=== PATIENT | female | born 1960 | race Caucasian/White ===

== ENCOUNTER 2018-01-17 16:02 | Inpatient (IN) ==
--- NOTE | 2018-01-17 16:36 | Emergency Department Note ---
Lower Extremity Injury HPI - General Chief Complaint: Extremity Injury, Lower Stated Complaint: Right Hip Pain. Time Seen by Provider: 01/17/18 16:08 Source: patient Mode of arrival: ambulatory Limitations: no limitations - History of Present Illness HPI Narrative: 57 YOF fell in her home in her kitchen 2 days ago at 1630 tripping over toys. Pt was transported by EMS to [facility] and received x-rays and evaluation. Pt was diagnosed at that time with right pinkie fracture and a cast was applied. Right hip was also x-rayed with no signs of fracture. Pt stated she has not been able to walk since the fall, she shuffles her feet to get to the bathroom and has the assistance of two persons to help her onto her bed. MD complaint: hip injury (right) Onset (ago): day(s) (two) Injury: Right: hip Type of Injury: blunt Place: home Severity: moderate Improves with: nothing Worsens with: movement Associated symptoms: Denies: ambulatory Other symptoms: none Treatments prior to arrival: NSAIDS, other - Related Data Home Medications Medication Instructions Recorded Confirmed Albuterol Sulfate [Proair Hfa] 8.5 gm IH Q4HP PRN 01/22/17 01/22/17 Atomoxetine HCl [Strattera] 100 mg PO DAILY 01/22/17 01/22/17 Buprenorphine [Butrans] 20 mcg TD QWEEK 01/22/17 01/22/17 Gabapentin [Neurontin] 300 mg PO BID 01/22/17 01/22/17 Hydrocodone/APAP 7.5/325Mg [[place] 1 tab PO BID 01/22/17 01/22/17 7.5/325Mg] Meloxicam [Mobic] 7.5 mg PO DAILY 01/22/17 01/22/17 Methocarbamol [Robaxin-750] 750 mg PO BID 01/22/17 01/22/17 Montelukast Sodium [Singulair] 10 mg PO HS 01/22/17 01/22/17 Ondansetron HCl [Zofran ODT] 4 mg SL DAILY 01/22/17 01/22/17 Pantoprazole Sodium [Protonix] 40 mg PO DAILY 01/22/17 01/22/17 Tolterodine Tartrate [Tolterodine 4 mg PO DAILY 01/22/17 01/22/17 Tartrate ER] Verapamil HCl [Verapamil ER] 120 mg PO HS 01/22/17 01/22/17 buPROPion HCL [Wellbutrin Xl] 300 mg PO DAILY 01/22/17 01/22/17 carBAMazepine [Tegretol Xr] 400 mg PO DAILY 01/22/17 01/22/17 clonazePAM [Clonazepam] 1 mg PO BID 01/22/17 01/22/17 Allergies Allergy/AdvReac Type Severity Reaction Status Date / Time Amoxicillin [From Augmentin] AdvReac Unknown Nausea Verified 01/22/17 13:09 clavulanic acid AdvReac Unknown Nausea Verified 01/22/17 13:09 [From Augmentin] levofloxacin [From Levaquin] AdvReac Unknown Swelling Verified 01/22/17 13:09 topiramate [From Topamax] AdvReac Unknown Rash Verified 01/22/17 13:09 Review of Systems Constitutional: Denies: fever, chills, weight change Cardiovascular: Denies: chest pain, palpitations, dyspnea on exertion, edema Respiratory: Denies: shortness of breath, wheezes Gastrointestinal: Denies: abdominal pain, nausea, vomiting, diarrhea Genitourinary: Denies: dysuria, urgency, frequency Musculoskeletal: Reports: joint pain. Denies: back pain, joint swelling, muscle cramps Integumentary: Denies: rash Neurological: Denies: headache, weakness Endocrine: Denies: fatigue Past Medical History - Past Medical History Medical history: Reports: other (reports "white matter disease" suggestion of microvascular dementia on previous imaging; hronic low back pain) Psychiatric history: Reports: bipolar Surgical history ED: Reports: other () - Social History smoking status: Current every day smoker Physical Exam Limitations: no limitations General appearance: alert, in no apparent distress Head: normocephalic, normal inspection Eye: Present: normal appearance, PERRL ENT: normal external ear exam Neck: Present: normal inspection Chest: Present: normal inspection, symmetric chest wall rise. Absent: tenderness Respiratory: Present: normal lung sounds bilaterally. Absent: wheezes Cardiovascular: Present: regular rate, normal rhythm. Absent: systolic murmur, diastolic murmur Abdominal: Present: soft, normal bowel sounds. Absent: distention, tenderness, guarding Hip/Pelvis: Present: tenderness, pelvis stable. Absent: swelling, ecchymosis, deformity, internal rotation, shortening Gait: other (pt shuffles when walks and had increased pain in pelvis/hip when moving right leg) Back: Present: normal inspection. Absent: tenderness Course Vital Signs Temperature 98.0 F 01/17/18 16:03 Pulse Rate 85 01/17/18 16:03 Respiratory Rate 18 01/17/18 16:03 Blood Pressure 155/90 01/17/18 16:03 Pulse Oximetry (%) 97 01/17/18 16:03 Temperature 98.0 F 01/17/18 16:03 Pulse Rate 79 01/17/18 18:01 Respiratory Rate 18 01/17/18 16:03 Blood Pressure 132/77 01/17/18 18:01 Pulse Oximetry (%) 99 01/17/18 18:01 Extremity Injury, Lower - MDM Narrative Medical decision making narrative: Pt CT showed Vertically oriented fracture of the right sacral wing and Fractures of the right pubic bone including the inferior pubic ramus and junction of the superior pubic bone and acetabulum. Pt lives at home alone with family members in and out but no one to assist her throughout much of the day. Pt also in need of pain control, due to extreme pain with movement. Talked with Hospitalist Nuno and pt will be placed into overnight observation. Disposition Pt seen by [facility]/PA only: No (chin) Clinical Impression: Fracture of hip Qualifiers: Encounter type: initial encounter Fracture type: closed Laterality: right Qualified Code(s): S72.001A - Fracture of unspecified part of neck of right femur, initial encounter for closed fracture Disposition: Xfer As Outpt/Obs ([facility]) Referrals: Adia Blake DO [Primary Care Provider] - Time of Disposition: 18:38
--- NOTE | 2018-01-17 17:02 | Cat Scan Report ---
CLINICAL INFORMATION: Fall. Pelvis and right hip pain. TECHNIQUE: Axial thin section images through the pelvis. Sagittal and coronally reformatted images. COMPARISON: None. FINDINGS: Vertically oriented fracture through the right sacral wing. No displacement. No evidence for pathologic fracture. Left sacral wing is normal. There is slight widening of the right sacroiliac joint. There is a nondisplaced fracture at the junction of the right acetabulum and superior pubic bone. This is extra-articular. There is a fracture of the right inferior pubic ramus. Hips are negative. Femoral heads and necks are normal. No evidence for avascular necrosis. No degenerative joint disease. There is right-sided soft tissue hemorrhage with hematoma involving the internal and external obturator muscles on the right. No free intraperitoneal fluid. IMPRESSION: 1. Vertically oriented fracture of the right sacral wing 2. Fractures of the right pubic bone including the inferior pubic ramus and junction of the superior pubic bone and acetabulum. Interpreted and Authenticated by: José Luis Alcaraz 01/17/18
--- NOTE | 2018-01-17 18:05 | Internal Med History&Physical ---
Medical - H&P: HPI Patient information: Note initiated : 01/17/18 at 6:01 pm Patient: Val Blue a 57 y/o F admitted for medical management of non- operative, stable pelvic fractures. Chief Complaint: [right hip pain, unable to bear weight.] History of present illness: Ms. Blue is a 57 year old F with underlying diagnoses including bipolar disorder, hypertension, spinal stenosis, and history of peptic ulcer disease without history of GI bleed who presents with right hip pain and inability to walk 48 hours after a fall. She notes she tripped on some dog toys on the kitchen floor, fell "straight backwards", coming to land mostly on her right posterior hip. She was unable to stand alone at that time, was able to get up with assistance from her daughter and son-in-law. She was evaluated at the ED at [facility], and noted to have a fracture in her 5th digit (??metacarpal) - and was placed in a forearm splint with 4th and 5th fingers in flexion. She states she was told she had no other fractures at that time. After 48 hours, discomfort has increased further and she is unable to bear weight or get around. The presence of the splint would make a walker somewhat challenging. In the ED here, CT of the pelvis showed no fractures requiring operative intervention, but did show multiple sacral and pelvis fractures that are stable and require medical management. ED placed consult to hospitalist for admission. Review of systems: 1) Has an upper plate which she rarely wears due to the fact "it hurts" - puts it in "to go out" and that's about it. 2) Occasional pedal edema, denies any severe or chronic edema. 3) Post prandial diarrhea on occasion; has not altered her diet due to this symptom. 4) Snores, but recent sleep study showed no significant sleep apnea. 5) Otherwise, on complete review, all others are negative. Medical - H&P: PMH Medical history: 1) Bipolar disorder 2) Spinal stenosis - unknown level 3) h/o peptic ulcer disease, on chronic PPI, no history of GI bleed per patient 4) Hypertension 5) Recovering alcoholic x 28 years (since 1989) 6) Recovering addict x 29 years (since 1988) - denies history of IVDU Surgical history: 1) s/p cholecystectomy 2) s/p ORIF - Left wrist, hardware in situ 3) s/p BTL Pertinent family history: Mother at 85 of Parkinson's; also had hip fracture in her 80's. Father at 67 of chronic kidney disease No family history of other osteoporosis Social history: Daughter and daughter's boyfriend currently living with her. Lifelong non- smoker (except in tenth grade for "about a day"), recovering alcoholic/addict. On SSI since 1991. Functional capacity: independent ambulation Alcohol use: sober Medical - H&P: Meds Home Medications Medication Instructions Recorded Confirmed Type Albuterol Sulfate [Proair Hfa] 8.5 gm IH Q4HP PRN 01/22/17 01/22/17 History Atomoxetine HCl [Strattera] 100 mg PO DAILY 01/22/17 01/22/17 History Buprenorphine [Butrans] 20 mcg TD QWEEK 01/22/17 01/22/17 History Gabapentin [Neurontin] 300 mg PO BID 01/22/17 01/22/17 History Hydrocodone/APAP 7.5/325Mg [[place] 1 tab PO BID 01/22/17 01/22/17 History 7.5/325Mg] Meloxicam [Mobic] 7.5 mg PO DAILY 01/22/17 01/22/17 History Methocarbamol [Robaxin-750] 750 mg PO BID 01/22/17 01/22/17 History Montelukast Sodium [Singulair] 10 mg PO HS 01/22/17 01/22/17 History Ondansetron HCl [Zofran ODT] 4 mg SL DAILY 01/22/17 01/22/17 History Pantoprazole Sodium [Protonix] 40 mg PO DAILY 01/22/17 01/22/17 History Tolterodine Tartrate [Tolterodine 4 mg PO DAILY 01/22/17 01/22/17 History Tartrate ER] Verapamil HCl [Verapamil ER] 120 mg PO HS 01/22/17 01/22/17 History buPROPion HCL [Wellbutrin Xl] 300 mg PO DAILY 01/22/17 01/22/17 History carBAMazepine [Tegretol Xr] 400 mg PO DAILY 01/22/17 01/22/17 History clonazePAM [Clonazepam] 1 mg PO BID 01/22/17 01/22/17 History Allergies Allergy/AdvReac Type Severity Reaction Status Date / Time Amoxicillin [From Augmentin] AdvReac Unknown Nausea Verified 01/22/17 13:09 clavulanic acid AdvReac Unknown Nausea Verified 01/22/17 13:09 [From Augmentin] levofloxacin [From Levaquin] AdvReac Unknown Swelling Verified 01/22/17 13:09 topiramate [From Topamax] AdvReac Unknown Rash Verified 01/22/17 13:09 Medical - H&P: Exam - Constitutional Vitals: Temp Pulse Resp BP Pulse Ox 98.0 F 84 18 160/110 99 01/17/18 16:03 01/17/18 17:30 01/17/18 16:03 01/17/18 17:30 01/17/18 17:30 - Other Additional findings: GENERAL: Appears older than stated age. Alert, oriented. Speech coherent, fluent, articulate. Thought content appropriate, no pressured speech or flight of ideas. Respirations unlabored. Clearly uncomfortable when she moves to a sitting position, no distress when reclining. HEENT: Atraumatic, normocephalic; EYES: pupils equal, full range of extraocular movements, no scleral icterus, no injected vessels. EARS: TM's pearly diamond and translucent, EAC's without cerumen or trauma, auricles without lesions. OROPHARYNX: Edentulous maxilla; lower incisors present with damage evident from poor hygiene. Membranes moist. NECK: Trachea midline, no adenopathy, no JVD, no bruits. LUNGS: Clear to bases bilaterally. COR: Regular rate and rhythm, no murmurs, rubs, gallops. ABDOMEN: Bowel sounds present and normal, non-distended, soft, non-tender throughout. No guarding, no rebound. No masses or organomegaly. BACK: No vertebral tenderness. No CVA tenderness. Discomfort expressed on palpation of right SI joint. EXTREMITIES: No edema, pulses x4, warm. No palpable cords, no nailbed cyanosis. MUSCULOSKELETAL: Tender at outside aspect right hip, under ischium, at right SI joint. Minimal discomfort on palpation of pubic bone. No visible bruising. No visible deformity. Passive ROM of hip with minimal discomfort. No joint swelling, erythema. Right upper extremity in a short arm splint with 4th and 5th fingers in flexion. NEURO: Sensation and mobility intact in feet. PSYCHIATRIC: Normal affect, appropriate thought content. Medical - H&P: Reslt - Imaging and Cardiology CT scan - pelvis Additional comments: Per reading by radiology, (Dr. Alcaraz) FINDINGS: Vertically oriented fracture through the right sacral wing. No displacement. No evidence for pathologic fracture. Left sacral wing is normal. There is slight widening of the right sacroiliac joint. There is a nondisplaced fracture at the junction of the right acetabulum and superior pubic bone. This is extra-articular. There is a fracture of the right inferior pubic ramus. Hips are negative. Femoral heads and necks are normal. No evidence for avascular necrosis. No degenerative joint disease. There is right-sided soft tissue hemorrhage with hematoma involving the internal and external obturator muscles on the right. No free intraperitoneal fluid. IMPRESSION: 1. Vertically oriented fracture of the right sacral wing 2. Fractures of the right pubic bone including the inferior pubic ramus and junction of the superior pubic bone and acetabulum. Medical - H&P: A/P - Narrative A/P Narrative: 1) Sacral and pelvic fractures - all are stable per report, non-operative fractures. Patient is unable to bear weight, and with her right hand fracture and splint, will have some difficulty using a walker. Plan to admit for pain control and PT evaluation, OT evaluation. I also discussed with her case management involvement to assist with safe discharge planning. In discussion with patient I have explained the goal of adequate, but not complete, pain relief. Will also check vitamin D level. 2) History of hypertension - BP was high in the ED, some may have been due to pain, but patient tells me that she has not taken her verapamil yet today - and that she frequently skips medications because she is concerned it will be "too strong for her." Encouraged her to use time in the hospital to take medications as prescribed so that we are there to make sure it is the appropriate dose. 3) Bipolar disorder - no evidence of decompensation at the present time. Will continue her current medications. 4) History of peptic ulcer disease - this is somewhat vague. She has been on a proton pump inhibitor after an EGD showed findings, but she is not clear on what symptoms prompted the EGD. She is very clear she has never had a GI bleed. 5) History of spinal stenosis - stable, no exacerbation of symptoms at present. 6) Recovering alcoholic / addict - understands and expresses agreement with goals of pain management. I have also let her know that many of the medications do have addictive potential, and that I will use cautiously and appropriately to help keep her out of trouble while providing adequate pain coverage. Plan: 1) Observation - discharge plan is unclear at present. Will start with observation and re-evaluate tomorrow. It may become quite clear that she will be unable to discharge home within two midnights and I will switch to inpatient at that time. 2) Up to chair at least twice a day for meals. 3) Pain control - start with oral alternatives, use parenteral morphine if indicated. 4) Considered Toradol, will use with caution due to possible GI bleed history 5) PT consult 6) OT consult 7) Case management consult 8) Regular diet 9) Restart home meds, including Verapamil (will give dose tonight) 10) Incentive spirometry 11) anti-embolism stockings 12)Other problems to be addressed as they arise.
[2018-01-17] MEDS ORDERED: ACETAMINOPHEN 325 MG TABLET PO PRN (19:30)
[2018-01-17] MEDS ORDERED: SENNOSIDES 1 TABLET PO PRN (19:30)
[2018-01-17] MEDS: 0.9 % SODIUM CHLORIDE 10 ML SYRINGE IV SCH (20:21)
[2018-01-17] MEDS ORDERED: oxyCODONE HCL 5 MG TABLET PO ONE (20:23)
[2018-01-17] MEDS ORDERED: oxyCODONE/APAP 5/325MG TABLET PO ONE (20:29)
[2018-01-17] MEDS: DOCUSATE SODIUM 100 MG CAPSULE PO SCH (21:42)
[2018-01-17] MEDS ORDERED: ALBUTEROL SULFATE 1 PUFF INHALER INH PRN (21:44)
--- NOTE | 2018-01-17 22:04 | Emergency Department Note ---
ED Note Addendum Note Addendum: pt examined with Caren and agree with dx and rx of her pelvic fractures
[2018-01-17] MEDS: VERAPAMIL 120 MG TAB.XL.24H PO SCH (22:20)
[2018-01-18] MEDS: oxyCODONE/APAP 5/325MG TABLET PO PRN ×6 (01:18→22:02)
[2018-01-18] MEDS: 0.9 % SODIUM CHLORIDE 10 ML SYRINGE IV SCH ×4 (05:03→22:04)
[2018-01-18] MEDS: METHOCARBAMOL 750 MG TABLET PO PRN ×2 (07:21→22:02)
[2018-01-18] MEDS: PANTOPRAZOLE 40 MG TABLET PO SCH (07:21)
[2018-01-18] MEDS: DOCUSATE SODIUM 100 MG CAPSULE PO SCH ×2 (09:00→20:21)
[2018-01-18] MEDS ORDERED: ONDANSETRON ODT 4 MG TABLET SL SCH (09:00)
[2018-01-18] MEDS: clonazePAM 1 MG TABLET PO SCH ×2 (09:00→20:21)
[2018-01-18] MEDS: PREGABALIN 75 MG CAPSULE PO SCH ×2 (09:00→20:21)
[2018-01-18] MEDS: buPROPion 150 MG TAB.XL.24H PO SCH (09:01)
[2018-01-18] MEDS: CARBAMAZEPINE 400 MG PO SCH (09:01)
[2018-01-18] MEDS: LIDOCAINE PATCH TOPICAL SCH ×2 (13:44→23:58)
--- NOTE | 2018-01-18 15:39 | Internal Med Progress Note ---
Medical - PN: Subj Patient information: Note initiated : 01/18/18 at 3:33 pm Patient: Val Blue a 57 y/o F admitted on 01/17/18 for Right Hip Pain, dx 'd with stable, nonoperative pelvic fractures. Interval history: Nursing had approached me with concerns regarding clock watching for medications while stating to nursing that "they don't work anyway." Has been up with PT, now understanding the difficulty with mobility with the splint on as well. She notes most of the discomfort is where she sits. Denies headache, states ate breakfast without a problem, no nausea, heartburn, or vomiting. No bowel movement since admission yesterday, does not feel constipated. No cough, chest pain, or sense of shortness of breath. Denies vertigo or lightheadedness with medications. - Constitutional Vitals: Vital Signs Temp Pulse Resp BP Pulse Ox 98.1 F 69 16 116/72 96 01/18/18 11:16 01/18/18 04:07 01/18/18 11:16 01/18/18 11:16 01/18/18 11:16 Period Temp Pulse Resp BP Sys/Ramirez Pulse Ox Last 24 Hr 97.1 F-98.1 F 58-85 14-18 100-160/66-110 96-100 Intake and Output 01/18/18 01/18/18 01/18/18 05:59 13:59 21:59 Intake Total 100 / 100 Output Total 225 / 225 70 / 70 80 / 80 Balance -125 / -125 -70 / -70 -80 / -80 Intake & Output: Intake & Output 01/18/18 01/18/18 01/18/18 05:59 13:59 21:59 Intake Total 100 / 100 Output Total 225 / 225 70 / 70 80 / 80 Balance -125 / -125 -70 / -70 -80 / -80 Intake: Oral 100 / 100 Output: Void Amount 225 / 225 70 / 70 80 / 80 Other: Meal Egg salad sandwich, pears Lunch Percent of Meal Consumed 75% 75% Feeding Ability Independent Independent - Additional findings Additional findings: GENERAL: Patient tearful at times. Respirations are unlabored, speech coherent , fluent, articulate. Thought content appropriate. Respirations unlabored. HEENT: Eyes without icterus; Oropharynx with moist membranes, edentulous maxilla. NECK: No masses on palpation. LUNGS: Clear to the bases bilaterally. COR: Regular rate and rhythm, no murmurs, rubs, gallops. EXT: Right forearm still in a splint. Moves fingers 1-3 easily. 4 and 5 held in flexion, tips warm and she can wiggle. No proximal swelling, no swelling of fingers. Right leg with no guarding on passive ROM at hip, patient grimaces at me if not distracted. If distracted, seems to be without pain. DP pulses present. Tender at right ischium and right SI joint. Medical - PN: Obj Da - Labs Meds: Medications Acetaminophen (Tylenol) 650 mg PO Q6HP PRN PRN Reason: PAIN/FEVER > 101 Albuterol Sulfate (Ventolin) 1 puff INH Q4HP PRN PRN Reason: Cough Bupropion HCl (Wellbutrin Xl) 300 mg PO DAILY [facility] Last Admin: 01/18/18 09:01 Dose: 300 mg Clonazepam (Klonopin) 1 mg PO BID [facility] Last Admin: 01/18/18 09:00 Dose: 1 mg Docusate Sodium (Colace) 100 mg PO BID [facility] Last Admin: 01/18/18 09:00 Dose: 100 mg Gabapentin (Neurontin) 300 mg PO BID [facility] Lidocaine (Lidoderm) 1 patch TOPICAL DAILY@1200 [facility] Last Admin: 01/18/18 13:44 Dose: 1 patch Lidocaine (Lidoderm) 0 patch TOPICAL DAILY@0000 [facility] Methocarbamol (Robaxin) 750 mg PO BIDP PRN PRN Reason: Muscle Spasm Last Admin: 01/18/18 07:21 Dose: 750 mg Montelukast Sodium (Singular) 10 mg PO HS [facility] Morphine Sulfate (Morphine) 4 mg IV Q4HP PRN PRN Reason: PAIN LEVEL > 6 Last Admin: 01/18/18 11:37 Dose: 4 mg Oxycodone/Acetaminophen (Percocet 5-325 Mg) 0 tab PO Q4HP PRN PRN Reason: PAIN LEVEL 3-6 Last Admin: 01/18/18 12:53 Dose: 2 tab Pantoprazole Sodium (Protonix) 40 mg PO QAMAC [facility] Last Admin: 01/18/18 07:21 Dose: 40 mg Carbamazepine [ Tegretol Xr] 400 Mg Tab 1 dose PO DAILY [facility] Last Admin: 01/18/18 09:01 Dose: Not Given Pregabalin (Lyrica) 75 mg PO BID [facility] Last Admin: 01/18/18 09:00 Dose: 75 mg Senna (Senokot) 2 tab PO HS PRN PRN Reason: Constipation Sodium Chloride (Saline Flush) 10 ml IV Q8 [facility] Last Admin: 01/18/18 12:55 Dose: 10 ml Verapamil HCl (Calan Sr) 120 mg PO HS [facility] Last Admin: 01/17/18 22:20 Dose: 120 mg Medical - PN: A/P - Time Spent With Patient Total time spent is greater than 50% in coordination of care (as documented) at patient's floor/unit and/or counseling patient: 25 - 35 minutes - Narrative A/P Narrative: 1) Right proximal 5th phalanx fracture - I received records from [facility] - no metacarpal fractures, but proximal end of proximal phalanx, 5th finger. Has f/u scheduled with outpatient orthopedics through [facility] tomorrow. I've discussed this with her - she will still be in the hospital, and I don't know if she requires surgical intervention on this finger. Will ask orthopedic surgery to evaluate tomorrow - no need to have him come in on a holiday. In meantime, no issues with splint are identified, will continue splint care. 2) Stable sacral ala and pelvic ramus fx - I do believe there is some interest in accelerating pain medications. I discussed this with her at length. She is a recovering addict (preference for cocaine and speed), is chronically on hydrocodone/APAP 7.5 tid at home. She doesn't feel the parenteral morphine is helping, states "they mentioned there was something else you could try". I noted that if the morphine is not helping, that it might be worth stopping and trying Toradol. She was less interested in this. Review of records suggests she has had Toradol without issue, however, she gave a vague history of peptic ulcer last night. I again stress goal for adequate, not complete pain relief, and to try to cover her just enough so that she can work with PT. I noted if goal was complete pain relief, it would be impossible for her to participate in PT at all due to medication sedation. Will increase oral oxycodone, continue morphine at present dose - if she reports no difference tomorrow, will discontinue the morphine. I encouraged her and reminded her of all the other challenges she has navigated in her lifetime. She became somewhat tearful at that portion of the discussion, but started reminding me of even more than she had mentioned last night. She is likely going to have to go to a SNF, particularly if she has continued device on right arm. Will discuss with case management tomorrow, will change to inpatient today. I also told her that increase in opiate coverage would be expected to start returning to usual needs within one week and reaching usual needs within two weeks. 3) Bipolar disorder - she is on her home medications; will continue them 4) Hypertension - blood pressure in the 100-110's since admission. Received dose of Verapamil last night. Will continue her outpatient dose. 5) Possible history of ulcer vs GERD - she has been on pantoprazole, and this has been continued. Will try to obtain more specific history before using Toradol.\\ 6) Vitamin D deficiency - patient relates to me that she has a history of vitamin D deficiency. I let her know I had added that to labwork and current results are pending. Will start replacement empirically. Time spent today 25 minutes with more than 15 minutes discussing plan with patient and then nursing staff. Medical - PN: Qual - VTE Deep Vein Thrombosis/Pulmonary Embolism Present on Admission: No
[2018-01-18] MEDS: GABAPENTIN 300 MG CAPSULE PO SCH (20:21)
[2018-01-18] MEDS: VERAPAMIL 120 MG TAB.XL.24H PO SCH (20:21)
[2018-01-18] MEDS: MONTELUKAST 10 MG TABLET PO SCH (20:21)
[2018-01-19] MEDS: oxyCODONE/APAP 5/325MG TABLET PO PRN ×5 (04:10→20:00)
[2018-01-19] MEDS: 0.9 % SODIUM CHLORIDE 10 ML SYRINGE IV SCH ×3 (06:40→22:13)
[2018-01-19] MEDS: LACTASE 1 TABLET PO SCH ×3 (08:01→17:33)
[2018-01-19] MEDS: PANTOPRAZOLE 40 MG TABLET PO SCH (08:01)
--- NOTE | 2018-01-19 09:11 | Internal Med Progress Note ---
Medical - PN: Subj Patient information: Note initiated : 01/19/18 at 9:06 am Patient: Val Blue a 57 y/o F admitted on 01/18/18 for Right Hip Pain, diagnosed with stable, non-operative sacral and pelvic fractures. Interval history: 01/18: Nursing had approached me with concerns regarding clock watching for medications while stating to nursing that "they don't work anyway." Has been up with PT, now understanding the difficulty with mobility with the splint on as well. She notes most of the discomfort is where she sits. Denies headache, states ate breakfast without a problem, no nausea, heartburn, or vomiting. No bowel movement since admission yesterday, does not feel constipated. No cough, chest pain, or sense of shortness of breath. Denies vertigo or lightheadedness with medications. 01/19: Reports out of bed this AM, still c/o pain with getting up or moving. Some concerns expressed by nursing yesterday regarding decreased urine output and poor po intake. In discussion with patient, she states she was limiting fluid so that she didn't have to get up as often. Encouraged her to both drink more and get up more often. She was agreeable, and in the evening, her oral intake was much better. This AM she notes that she is usually on home oxygen, she notes she had the sleep study (as noted in her H&P) which did not show apnea , but that she was advised to use nocturnal oxygen after that. She also disclosed that she uses the buprenorphine patch for a "bulging disk" and spinal stenosis. No neurologic or radicular symptoms described. - Constitutional Vitals: Vital Signs Temp Pulse Resp BP Pulse Ox 97.7 F 69 16 101/73 98 01/19/18 07:08 01/19/18 04:00 01/19/18 07:08 01/19/18 07:08 01/19/18 07:08 Period Temp Pulse Resp BP Sys/Ramirez Pulse Ox Last 24 Hr 97.7 F-98.3 F 64-69 14-16 99-116/63-73 94-98 Intake and Output 01/18/18 01/19/18 01/19/18 21:59 05:59 13:59 Intake Total 300 / 300 355 / 355 Output Total 155 / 155 Balance 145 / 145 355 / 355 Weight 142 lb 8 oz Intake & Output: Intake & Output 01/18/18 01/19/18 01/19/18 21:59 05:59 13:59 Intake Total 300 / 300 355 / 355 Output Total 155 / 155 Balance 145 / 145 355 / 355 Weight 142 lb 8 oz Intake: Oral 300 / 300 355 / 355 Output: Void Amount 155 / 155 Other: Meal Dinner Pears - cup Percent of Meal Consumed 75% 100% Feeding Ability Independent Independent - Additional findings Additional findings: GENERAL: No acute distress, no tearfulness today. Respirations are unlabored, speech coherent, fluent, articulate. Thought content appropriate. More animated affect. No pressured speech. HEENT: Eyes without icterus; Oropharynx with moist membranes, edentulous maxilla. LUNGS: Clear to the bases bilaterally. COR: Regular rate and rhythm, no murmurs, rubs, gallops. ABDOMEN: Non-distended, soft, non-tender. No BM since admission. EXT: Right forearm still in a splint. Moves fingers 1-3 easily. 4 and 5 held in flexion, tips warm and she can wiggle. No proximal swelling, no swelling of fingers. DP pulses present. Tender at right ischium and right SI joint. Medical - PN: Obj Da - Labs Meds: Medications Acetaminophen (Tylenol) 650 mg PO Q6HP PRN PRN Reason: PAIN/FEVER > 101 Albuterol Sulfate (Ventolin) 1 puff INH Q4HP PRN PRN Reason: Cough Bupropion HCl (Wellbutrin Xl) 300 mg PO DAILY [facility] Last Admin: 01/18/18 09:01 Dose: 300 mg Clonazepam (Klonopin) 1 mg PO BID [facility] Last Admin: 01/18/18 20:21 Dose: 1 mg Docusate Sodium (Colace) 100 mg PO BID [facility] Last Admin: 01/18/18 20:21 Dose: 100 mg Gabapentin (Neurontin) 300 mg PO BID [facility] Last Admin: 01/18/18 20:21 Dose: 300 mg Lactase (Lactaid) 1 tab PO TIDCC [facility] Last Admin: 01/19/18 08:01 Dose: 1 tab Lidocaine (Lidoderm) 1 patch TOPICAL DAILY@1200 [facility] Last Admin: 01/18/18 13:44 Dose: 1 patch Lidocaine (Lidoderm) 0 patch TOPICAL DAILY@0000 [facility] Last Admin: 01/18/18 23:58 Dose: Not Given Methocarbamol (Robaxin) 750 mg PO BIDP PRN PRN Reason: Muscle Spasm Last Admin: 01/18/18 22:02 Dose: 750 mg Montelukast Sodium (Singular) 10 mg PO HS [facility] Last Admin: 01/18/18 20:21 Dose: 10 mg Morphine Sulfate (Morphine) 4 mg IV Q4HP PRN PRN Reason: PAIN LEVEL > 6 Last Admin: 01/19/18 06:41 Dose: 4 mg Oxycodone/Acetaminophen (Percocet 5-325 Mg) 0 tab PO Q4HP PRN PRN Reason: PAIN LEVEL 3-6 Last Admin: 01/19/18 08:06 Dose: 2 tab Pantoprazole Sodium (Protonix) 40 mg PO QAMAC [facility] Last Admin: 01/19/18 08:01 Dose: 40 mg Carbamazepine [ Tegretol Xr] 400 Mg Tab 1 dose PO DAILY [facility] Last Admin: 01/18/18 09:01 Dose: Not Given Buprenorphine [ Butrans] 20 Mcg Patch 1 dose TOPICAL Tu@1000 [facility] Pregabalin (Lyrica) 75 mg PO BID [facility] Last Admin: 01/18/18 20:21 Dose: 75 mg Senna (Senokot) 2 tab PO HS PRN PRN Reason: Constipation Sodium Chloride (Saline Flush) 10 ml IV Q8 [facility] Last Admin: 01/19/18 06:40 Dose: 10 ml Verapamil HCl (Calan Sr) 120 mg PO HS [facility] Last Admin: 01/18/18 20:21 Dose: 120 mg Vitamin D (Vitamin D3) 3,000 unit PO DAILY [facility] Medical - PN: A/P - Time Spent With Patient Total time spent is greater than 50% in coordination of care (as documented) at patient's floor/unit and/or counseling patient: 15 - 24 minutes - Narrative A/P Narrative: 1) Right proximal 5th phalanx fracture - I received records from [facility] - no metacarpal fractures, but proximal end of proximal phalanx, 5th finger. Discussed via phone with Dr. Mendoza this morning. Will obtain repeat Xrays of 5th phalanx in splint and he will evaluate and advise. 2) Stable sacral ala and pelvic ramus fx - Patient is able to get up with minimal assistance from staff. Participating appropriately in physical therapy. No change in pain medications at present - anticipate return to her usual pain regimen by the end of the week. Discussed discharge plan with case management. I am not convinced she will be able to care for self at home, particularly if RUE is as limited as it is now in splint. Vit D supplementation , was drinking milk yesterday, reported h/o lactose intolerance, I ordered Lactaid for her. No history of DEXA or other study per patient. 3) Chronic pain with opiate dependence - continuing home regimen with buprenorphine patch. Some increase in oral coverage (appears she takes her hydrocodone on schedule in addition to patch at home), and parenteral morphine. Will plan to stop parenteral morphine tomorrow. 4) Nocturnal hypoxia - ordered nocturnal oxygen at 2 liters. 5) Decreased bowel motility - secondary to opioid medications. Will add scheduled Miralax, continue prn Senna. 6) Bipolar disorder - she is on her home medications; will continue them 7) Hypertension - blood pressure in the 100-110's since admission. Received dose of Verapamil last night. Will continue her outpatient dose. 8) Possible history of ulcer vs GERD - she has been on pantoprazole, and this has been continued. Will try to obtain more specific history before using Toradol, although records suggest this has been used in past without untoward effects. In addition, appears she has been on ibuprofen at home. 9) Vitamin D deficiency - results are still pending; started D3 replacement this AM. Reports history of deficiency. 10) Complication prophylaxis - on PPI chronically, will continue that; antiembolic stockings in place. Time spent today was 20 minutes total patient care, including coordination with nursing and case management as well as discussion with orthopedics. Medical - PN: Qual - VTE Deep Vein Thrombosis/Pulmonary Embolism Present on Admission: No
[2018-01-19] MEDS: PREGABALIN 75 MG CAPSULE PO SCH ×2 (09:47→20:51)
[2018-01-19] MEDS: buPROPion 150 MG TAB.XL.24H PO SCH (09:47)
[2018-01-19] MEDS: CARBAMAZEPINE 400 MG PO SCH (09:47)
[2018-01-19] MEDS: VITAMIN D3 1,000 UNIT TABLET PO SCH (09:47)
[2018-01-19] MEDS: DOCUSATE SODIUM 100 MG CAPSULE PO SCH ×2 (09:48→20:51)
[2018-01-19] MEDS: METHOCARBAMOL 750 MG TABLET PO PRN ×2 (09:48→22:13)
[2018-01-19] MEDS: GABAPENTIN 300 MG CAPSULE PO SCH ×2 (09:49→20:51)
[2018-01-19] MEDS: clonazePAM 1 MG TABLET PO SCH ×3 (09:49→20:50)
[2018-01-19] MEDS ORDERED: BUPRENORPHINE 20 MCG TOPICAL SCH (10:00)
[2018-01-19] MEDS: LIDOCAINE PATCH TOPICAL SCH ×2 (11:40→23:52)
--- NOTE | 2018-01-19 13:50 | XRay Report ---
CLINICAL INFORMATION: Trauma COMPARISON: 01/15/2018 FINDINGS: Film taken with an ulnar plaster splint placed obscures bone detail of the fourth and fifth digits. Acute appearing oblique fracture through the base of fifth proximal phalanx is unchanged from the previous study. There is mild impaction and 5 mm of radial and volar displacement of the distal fragment. Joint spaces are unremarkable. IMPRESSION: Mildly displaced impacted oblique fracture of the fifth proximal phalanx base Interpreted and Authenticated by: José Luis Rosenthal 01/19/18
--- NOTE | 2018-01-19 14:28 | Consultation ---
DATE OF CONSULTATION: 01/19/2018 CHIEF COMPLAINT: Right finger fracture. HISTORY OF PRESENT ILLNESS: The patient recently had a fall and she is not exactly sure what happened, but she thinks she caught her small finger on her right hand as she fell. She was originally seen at the ED at [facility] and evaluated for the fracture and splinted at that time. No post-reduction x-rays were obtained. She also had a nondisplaced nonsurgical pelvic fracture. She was readmitted to the hospital at [facility] for pain management for the pelvic fracture and a consult for the femur fracture was obtained. PAST MEDICAL HISTORY: Not listed in the chart at this time. HOME MEDICATIONS: 1. Albuterol. 2. Bupropion. 3. Tegretol. 4. Clonazepam. 5. Neurontin. 6. [place] 7.5/325 mg. 7. Robaxin. 8. Ritalin. 9. Singulair. 10. Protonix. 11. Lyrica. 12. Tolterodine. 13. Verapamil. ALLERGIES: LEVAQUIN, AUGMENTIN, and TOPAMAX. PAST SURGICAL HISTORY: Not listed. SOCIAL HISTORY: The patient is a smoker. PHYSICAL EXAMINATION: She is alert and oriented x3, appropriate mood and affect. GENERAL: She is in no acute distress. Heart: Regular Lungs: Clear VITAL SIGNS: Temperature is 98.2, pulse rate 76, respiratory rate 18, blood pressure 97/56. EXTREMITIES: Her right wrist and hand shows full active and passive range of motion with no pain. She has 5/5 wrist flexion and extension as well as finger flexion and extension. She has no tenderness to palpation. No swelling. She has palpable radial pulse. The right hand is in an ulnar gutter plaster splint at this time. She does have good capillary refill. The splint is well fitting at this time. RADIOLOGIC STUDIES: X-ray reviewed from [facility] does show a displaced proximal phalanx fracture of the fifth digit. No post-reduction films are available at this time; however, some have been ordered. ASSESSMENT: Right hand displaced proximal phalanx fracture. PLAN: The patient will follow up at [facility] later this week. I would like to get updated x-rays at that time if none have been obtained before then and we will likely put her into an ulnar gutter hand based cast at that time, if reduction and alignment are appropriate. Otherwise, she may be a candidate for surgical fixation. I did go over this with the patient and she is agreeable with this plan. She will call prior to that with any questions or concerns. She may discharge per hospitalist's protocol. ADDENDUM: Post-reduction x-rays in her splint were obtained and did show a malreduction of the proximal phalanx of the fifth digit. A reduction maneuver was attempted after informed verbal consent and a digital block was performed with 8 mL of lidocaine. X-rays were then obtained which showed not much improvement in the overall alignment of the fracture. Patient has elected to proceed with a right hand percutaneous pinning of a displaced proximal phalanx fracture of the fifth digit. This will be performed by Dr. Mendoza 01/20/2018. I had a long discussion with the patient regarding the procedure and postoperative protocol. I advised her that there is risk of bleeding; infection; injury to nerves, blood vessels, other structures in the area, stiffness, possibility of the bone not healing and possible need for further surgery. The patient understands these risks and is willing to proceed. CLARE:gavi Job ID: [id number] Doc ID: [id number] Jesse BARRIENTOS
--- NOTE | 2018-01-19 15:40 | XRay Report ---
CLINICAL INFORMATION: Post reduction fifth proximal pharyngeal fracture COMPARISON: 01/19/2018 1311 hours. FINDINGS: The plaster splint has been removed. The oblique fracture through the ulnar base of the fifth proximal phalanx unchanged in alignment with mild displacement distal fragment is a volar and radial direction. Joint spaces are normal IMPRESSION: Obliquely oriented, mild displaced fracture base of fifth proximal phalanx no change in alignment Interpreted and Authenticated by: José Luis Rosenthal 01/19/18
[2018-01-19] MEDS: VERAPAMIL 120 MG TAB.XL.24H PO SCH (20:50)
[2018-01-19] MEDS: MONTELUKAST 10 MG TABLET PO SCH (20:51)
[2018-01-19] MEDS: POLYETHYLENE GLYCOL 3350 17 GM PACKET PO SCH (20:51)
[2018-01-20 00:17] LABS: Appearance,Urine CLEAR; Bilirubin,Urine NEG (NEG); Color,Urine STRAW; Glucose,Urine (UA) NEGATIVE (NEG); Leukocyte Esterase,Urine NEG /uL (NEG); Protein,Urine NEG (NEG); Specific Gravity,Urine 1.013 (1.000-1.035); Urine Blood NEG mg/dL (<0.03); Urobilinogen,Urine NEG (NEG)
[2018-01-20] MEDS: oxyCODONE/APAP 5/325MG TABLET PO PRN ×3 (00:33→21:35)
[2018-01-20 04:49] LABS: Basophils # (Auto) 0 K/mcL (0.0-0.3); Basophils % (Auto) 0.8 % (0.0-2.0); Eosinophils # (Auto) 0.5 K/mcL (0.0-0.7); Eosinophils % (Auto) 11.1 % (0.0-7.0); Granulocytes % (Auto) 44.1 % (38.0-78.0); Lymphocytes # (Auto) 1.4 K/mcL (1.5-4.8); Lymphocytes % (Auto) 34.9 % (15.5-49.0); Mean Cell Volume 79.9 fL (80.0-100.0); Mean Corpuscular HGB Conc 33.7 g/dL (31.0-36.0); Mean Corpuscular Hemoglobin 26.9 pg (26.0-34.0); Monocytes # (Auto) 0.4 K/mcL (0.1-0.9); Monocytes % (Auto) 9.1 % (1.0-12.0); Platelet Count 204 K/mcL (140-440); RBC 3.31 M/mcL (4.00-5.20); Red Cell Distribution Width 15.4 % (11.5-14.5)
[2018-01-20] MEDS: 0.9 % SODIUM CHLORIDE 10 ML SYRINGE IV SCH ×3 (05:58→21:27)
[2018-01-20] MEDS: PANTOPRAZOLE 40 MG TABLET PO SCH (07:29)
[2018-01-20] MEDS: LACTASE 1 TABLET PO SCH ×3 (07:29→17:32)
[2018-01-20] MEDS: CARBAMAZEPINE 400 MG PO SCH (07:30)
[2018-01-20] MEDS: DOCUSATE SODIUM 100 MG CAPSULE PO SCH ×2 (07:30→18:59)
[2018-01-20] MEDS: buPROPion 150 MG TAB.XL.24H PO SCH (07:30)
[2018-01-20] MEDS: GABAPENTIN 300 MG CAPSULE PO SCH ×2 (07:30→18:59)
[2018-01-20] MEDS: VITAMIN D3 1,000 UNIT TABLET PO SCH (07:30)
[2018-01-20] MEDS: clonazePAM 1 MG TABLET PO SCH ×4 (07:30→21:27)
[2018-01-20] MEDS: PREGABALIN 75 MG CAPSULE PO SCH ×3 (07:30→21:27)
[2018-01-20] MEDS ORDERED: ceFAZolin 1 GM VIAL IV ONE (12:50)
[2018-01-20] MEDS ORDERED: LIDOCAINE HCL/PF 100 MG/5 ML SYRINGE IV ONE (13:00)
[2018-01-20] MEDS ORDERED: ONDANSETRON 4 MG/2 ML VIAL IV ONE (13:00)
[2018-01-20] MEDS ORDERED: DEXAMETHASONE 10 MG/ML VIAL IV ONE (13:00)
[2018-01-20] MEDS ORDERED: PROPOFOL 200 MG/20 ML VIAL IV ONE (13:00)
[2018-01-20] MEDS ORDERED: MIDAZOLAM 5 MG/5 ML VIAL IV ONE (13:00)
[2018-01-20] MEDS: LIDOCAINE PATCH TOPICAL SCH (13:24)
[2018-01-20] MEDS ORDERED: BUPIVACAINE 0.5% 50 ML VIAL IJ ONE (13:39)
[2018-01-20] MEDS ORDERED: fentaNYL 100 MCG/2 ML VIAL IV ONE ×2 (14:16→14:23)
--- NOTE | 2018-01-20 14:30 | Operative Note ---
DATE OF OPERATION: 01/18/2018 PREOPERATIVE DIAGNOSIS: Right fifth proximal phalanx fracture, closed and malaligned. POSTOPERATIVE DIAGNOSIS: Right fifth proximal phalanx fracture, closed and malaligned. PROCEDURE PERFORMED: Closed reduction and percutaneous pinning of the right fifth proximal phalanx fracture. SURGEON: Joselito Mendoza MD TECHNOLOGY AUDITOR: Elie Marcus PA-C ANESTHESIA: General. DRAINS: None. SPECIMENS: None. COMPLICATIONS: None. BLOOD LOSS: Minimal. POSTOPERATIVE CONDITION: Stable. INDICATIONS FOR SURGERY: This is a 57-year-old female who fell apparently, I believe last week. She was supposed to follow up in clinic, but then got admitted for a pelvic fracture and pain control. She had x-rays taken which showed malaligned proximal phalanx fracture. FINDINGS AT SURGERY: Angled proximal phalanx fracture at the base. Post-pinning showed anatomic alignment. PROCEDURE IN DETAIL: The patient had been seen preoperatively and informed consent had been obtained after discussion of risks and benefits of surgery. Risks including, but not limited to, bleeding; infection; injury to nerves, blood vessels, and other surrounding structures; anesthetic risks; nonunion or malunion of fracture; failure of hardware fixation; possibility of needing further revision surgery. She understood these risks and wished to proceed. Correct operative site was marked. The patient was taken to the operating room. General anesthesia induced. The right upper extremity was carefully prepped and draped in normal sterile fashion. A timeout was performed verifying patient name, operative site, and plan. Closed reduction maneuver was performed after initial fluoro did verify the angulation. We then rechecked after the post-reduction and alignment was anatomic. I then used a 0.062 K-wire starting on the ulnar side of the distal end of the proximal phalanx and passed this retrograde across the fracture site up to the articular surface and then attempted with a second 0.062. However, the phalanx was not big enough to accommodate two 0.062 K-wires so I had to downsize to a 0.045. This was passed retrograde into the opposite side. Fluoro images were taken and saved. We then placed pin balls and cut the K-wires. Xeroform was placed around the K-wires and then an ulnar gutter splint was applied in the intrinsic plus position. We did do a digital block prior to dressing placement. She was then awakened and transferred to recovery in stable condition. BJB:gavi Job ID: [id number] Doc ID: [id number] Joselito Mendoza MD
--- NOTE | 2018-01-20 16:56 | Internal Med Progress Note ---
Medical - PN: Subj Patient information: Note initiated : 01/20/18 at 4:54 pm Patient: Val Blue 57 y/o F admitted on 01/18/18 for Closed Reduction Percutaneous Pinning 5th Proximal; stable pelvic fractures requiring pain control. Interval history: 01/18: Nursing had approached me with concerns regarding clock watching for medications while stating to nursing that "they don't work anyway." Has been up with PT, now understanding the difficulty with mobility with the splint on as well. She notes most of the discomfort is where she sits. Denies headache, states ate breakfast without a problem, no nausea, heartburn, or vomiting. No bowel movement since admission yesterday, does not feel constipated. No cough, chest pain, or sense of shortness of breath. Denies vertigo or lightheadedness with medications. 01/19: Reports out of bed this AM, still c/o pain with getting up or moving. Some concerns expressed by nursing yesterday regarding decreased urine output and poor po intake. In discussion with patient, she states she was limiting fluid so that she didn't have to get up as often. Encouraged her to both drink more and get up more often. She was agreeable, and in the evening, her oral intake was much better. This AM she notes that she is usually on home oxygen, she notes she had the sleep study (as noted in her H&P) which did not show apnea , but that she was advised to use nocturnal oxygen after that. She also disclosed that she uses the buprenorphine patch for a "bulging disk" and spinal stenosis. No neurologic or radicular symptoms described. 01/20: Initial complaints of pain, although easily distracted. No issues during the night. Surgery planned this afternoon for pinning. Could discharge postop , but skilled facility cannot take her until tomorrow. Will continue to work with PT. Showed me the exercises she has been instructed to do. NPO when seen this AM for planned surgery. - Constitutional Vitals: Vital Signs Temp Pulse Resp BP Pulse Ox 98.2 F 86 18 122/83 94 01/20/18 14:48 01/20/18 16:00 01/20/18 14:48 01/20/18 16:00 01/20/18 16:00 Period Temp Pulse Resp BP Sys/Ramirez Pulse Ox Last 24 Hr 97.8 F-99.2 F 16-93 10-21 97-141/60-90 91-100 Intake and Output 01/20/18 01/20/18 01/20/18 05:59 13:59 21:59 Intake Total 600 / 600 800 / 800 Output Total 350 / 350 600 / 600 600 / 600 Balance 250 / 250 200 / 200 -600 / -600 Weight 143 lb Patient Weight 01/21/18 05:59 Weight 143 lb Intake & Output: Intake & Output 01/20/18 01/20/18 01/20/18 05:59 13:59 21:59 Intake Total 600 / 600 800 / 800 Output Total 350 / 350 600 / 600 600 / 600 Balance 250 / 250 200 / 200 -600 / -600 Weight 143 lb Intake: Oral 600 / 600 IV - Manual Only 800 / 800 Output: Void Amount 350 / 350 600 / 600 600 / 600 Other: Meal Nourishment/Supplement Percent of Meal Consumed 100% Feeding Ability Independent - Additional findings Additional findings: GENERAL: Sleeping very soundly and comfortably when I initially went into room. Respirations unlabored. Wakened with some difficulty, disgruntled and assertively asking for pain medications upon waking. Easily distracted past that, however. Speech coherent, fluent, articulate. LUNGS: Clear to the bases bilaterally. COR: Regular rate and rhythm, no murmurs, rubs, gallops. ABDOMEN: Non-distended, soft, non-tender. BM last night. EXT: The splint has been removed, she has a bandaid over her fingers. Her tenderness at right ischium and right SI joint actually seems less pronounced than yesterday. Medical - PN: Obj Da - Labs CBC & Chem 7: 01/20/18 04:20 01/20/18 04:20 Labs: Abnormal Lab Results 01/20/18 01/20/18 04:20 04:20 WBC 4.1 L RBC 3.31 L Hgb 8.9 L Hct 26.4 L POC Hct 24.0 L MCV 79.9 L RDW 15.4 H Eos % (Auto) 11.1 H Lymph # (Auto) 1.4 L POC Glucose 122 H Meds: Medications Acetaminophen (Tylenol) 650 mg PO Q6HP PRN PRN Reason: PAIN/FEVER > 101 Albuterol Sulfate (Ventolin) 1 puff INH Q4HP PRN PRN Reason: Cough Bupropion HCl (Wellbutrin Xl) 300 mg PO DAILY [facility] Last Admin: 01/20/18 07:30 Dose: Not Given Clonazepam (Klonopin) 1 mg PO TID [facility] Last Admin: 01/20/18 14:30 Dose: Not Given Docusate Sodium (Colace) 100 mg PO BID [facility] Last Admin: 01/20/18 07:30 Dose: Not Given Gabapentin (Neurontin) 300 mg PO BID [facility] Last Admin: 01/20/18 07:30 Dose: Not Given Lactase (Lactaid) 1 tab PO TIDCC [facility] Last Admin: 01/20/18 11:43 Dose: Not Given Lidocaine (Lidoderm) 1 patch TOPICAL DAILY@1200 [facility] Last Admin: 01/20/18 13:24 Dose: 1 patch Lidocaine (Lidoderm) 0 patch TOPICAL DAILY@0000 [facility] Last Admin: 01/19/18 23:52 Dose: Not Given Methocarbamol (Robaxin) 750 mg PO BIDP PRN PRN Reason: Muscle Spasm Last Admin: 01/19/18 22:13 Dose: 750 mg Montelukast Sodium (Singular) 10 mg PO [facility] Last Admin: 01/19/18 20:51 Dose: 10 mg Morphine Sulfate (Morphine) 4 mg IV Q4HP PRN PRN Reason: PAIN LEVEL > 6 Last Admin: 01/20/18 10:17 Dose: 2 mg Oxycodone/Acetaminophen (Percocet 5-325 Mg) 0 tab PO Q4HP PRN PRN Reason: PAIN LEVEL 3-6 Last Admin: 01/20/18 00:33 Dose: 2 tab Pantoprazole Sodium (Protonix) 40 mg PO QAMAC [facility] Last Admin: 01/20/18 07:29 Dose: Not Given Carbamazepine [ Tegretol Xr] 400 Mg Tab 1 dose PO DAILY [facility] Last Admin: 01/20/18 07:30 Dose: Not Given Buprenorphine [ Butrans] 20 Mcg Patch 1 dose TOPICAL Tu@1000 [facility] Last Admin: 01/19/18 16:22 Dose: 1 dose Polyethylene Glycol (Miralax) 17 gm PO [facility] Last Admin: 01/19/18 20:51 Dose: Not Given Pregabalin (Lyrica) 75 mg PO BID [facility] Last Admin: 01/20/18 07:30 Dose: Not Given Senna (Senokot) 2 tab PO HS PRN PRN Reason: Constipation Sodium Chloride (Saline Flush) 10 ml IV Q8 [facility] Last Admin: 01/20/18 14:30 Dose: Not Given Verapamil HCl (Calan Sr) 120 mg PO HS [facility] Last Admin: 01/19/18 20:50 Dose: 120 mg Vitamin D (Vitamin D3) 3,000 unit PO DAILY [facility] Last Admin: 01/20/18 07:30 Dose: Not Given Medical - PN: A/P - Time Spent With Patient Total time spent is greater than 50% in coordination of care (as documented) at patient's floor/unit and/or counseling patient: 15 - 24 minutes - Narrative A/P Narrative: 1) Right proximal 5th phalanx fracture - surgery for percutaneous fixation this afternoon. NPO at present. Plan discharge after to SNF with f/u per ortho. 2) Stable sacral ala and pelvic ramus fx - Patient is able to get up with minimal assistance from staff. Participating appropriately in physical therapy. No change in pain medications at present - anticipate return to her usual pain regimen by the end of the week. Discussed discharge plan with case management. I am not convinced she will be able to care for self at home, particularly if RUE is as limited as it is now in splint. Vit D supplementation , was drinking milk yesterday, reported h/o lactose intolerance, I ordered Lactaid for her. Vitamin D levels still pending. 3) Chronic pain with opiate dependence - continuing home regimen with buprenorphine patch. Some increase in oral coverage (appears she takes her hydrocodone on schedule in addition to patch at home). Will plan to stop parenteral morphine tomorrow at discharge. Given surgery this afternoon, will use through today. 4) Nocturnal hypoxia - on her usual nocturnal oxygen at 2 liters. 5) Decreased bowel motility - secondary to opioid medications. Some results with addition of Miralax. Will continue bowel meds. 6) Bipolar disorder - she is on her home medications; will continue them. Appears stable, no sign of decompensation at present. 7) Hypertension - blood pressure in the 100-110's since admission. Received dose of Verapamil last night. Good control with her outpatient dose of Verapamil. 8) Complication prophylaxis - on PPI chronically, will continue that; antiembolic stockings in place. Time spent today was 15 minutes total patient care, including coordination with nursing and case management. Medical - PN: Qual - VTE Deep Vein Thrombosis/Pulmonary Embolism Present on Admission: No
[2018-01-20] MEDS: MONTELUKAST 10 MG TABLET PO SCH (21:33)
[2018-01-20] MEDS: VERAPAMIL 120 MG TAB.XL.24H PO SCH (21:33)
[2018-01-20] MEDS: POLYETHYLENE GLYCOL 3350 17 GM PACKET PO SCH (21:36)
[2018-01-20] MEDS: METHOCARBAMOL 750 MG TABLET PO PRN (22:37)
[2018-01-21] MEDS: LIDOCAINE PATCH TOPICAL SCH ×2 (00:38→12:56)
[2018-01-21] MEDS: oxyCODONE/APAP 5/325MG TABLET PO PRN ×4 (01:42→12:54)
[2018-01-21] MEDS: METHOCARBAMOL 750 MG TABLET PO PRN ×2 (05:21→12:54)
[2018-01-21] MEDS: 0.9 % SODIUM CHLORIDE 10 ML SYRINGE IV SCH (05:22)
[2018-01-21] MEDS: PANTOPRAZOLE 40 MG TABLET PO SCH (08:00)
--- NOTE | 2018-01-21 08:00 | Orthopedic Progress Note ---
Orthopedics - Auxillary Note - Subjective Patient Information: Note initiated : 01/21/18 at 7:59 am Service Date, if different from initiated Date: [] Patient: Val Blue 57 y/o F admitted on 01/18/18 for Closed Reduction Percutaneous Pinning 5th Proximal. Chief Complaint: [] mild to moderate pain bandages c/d/i nvi-distal Vital Signs Temp Pulse Pulse Pulse Pulse Resp BP 01/21/18 07:43 97.9 F 83 16 01/21/18 04:00 97.9 F 84 16 01/20/18 23:59 98.4 F 108 H 16 01/20/18 20:00 97.9 F 104 H 16 01/20/18 16:00 86 122/83 01/20/18 15:45 88 136/90 01/20/18 15:30 93 H 132/87 01/20/18 15:00 86 118/82 01/20/18 14:48 98.2 F 87 18 125/84 01/20/18 14:40 98.5 F 87 125/84 01/20/18 14:32 98.2 F 75 13 129/76 01/20/18 14:27 80 12 141/86 01/20/18 14:22 98.2 F 82 15 137/82 01/20/18 14:17 81 14 130/76 01/20/18 14:12 80 21 123/81 01/20/18 14:08 87 89 16 123/82 01/20/18 14:03 98.2 F 87 16 01/20/18 13:58 99.2 F H 76 76 16 L 10 L 01/20/18 12:00 98.6 F 67 16 01/20/18 08:33 97.8 F 79 16 01/20/18 08:00 79 BP Pulse Ox 01/21/18 07:43 108/65 98 01/21/18 04:00 100/62 98 01/20/18 23:59 129/87 96 01/20/18 20:00 123/79 94 01/20/18 16:00 94 01/20/18 15:45 96 01/20/18 15:30 94 01/20/18 15:00 94 01/20/18 14:48 95 01/20/18 14:40 98 01/20/18 14:32 100 01/20/18 14:27 100 01/20/18 14:22 98 01/20/18 14:17 98 01/20/18 14:12 100 01/20/18 14:08 91 01/20/18 14:03 131/80 94 01/20/18 13:58 124/72 96 01/20/18 12:00 116/80 96 01/20/18 08:33 118/78 98 01/20/18 08:00 Intake and Output 01/20/18 01/21/18 01/21/18 21:59 05:59 13:59 Intake Total 840 / 840 Output Total 1075 / 1075 1100 / 1100 Balance -1075 / -1075 -260 / -260 Intake: Oral 840 / 840 Output: Void Amount 1075 / 1075 1100 / 1100 Other: Meal Dinner Percent of Meal Consumed 100% Feeding Ability Independent Weight 148 lb s/p R hand prox phalanxe CRPP-stable f/u at [facility] 7-10 days for casting
[2018-01-21] MEDS: VITAMIN D3 1,000 UNIT TABLET PO SCH (08:27)
[2018-01-21] MEDS: buPROPion 150 MG TAB.XL.24H PO SCH (08:27)
[2018-01-21] MEDS: CARBAMAZEPINE 400 MG PO SCH (08:27)
[2018-01-21] MEDS: GABAPENTIN 300 MG CAPSULE PO SCH (08:28)
[2018-01-21] MEDS: DOCUSATE SODIUM 100 MG CAPSULE PO SCH (08:28)
[2018-01-21] MEDS: clonazePAM 1 MG TABLET PO SCH (08:28)
[2018-01-21] MEDS: PREGABALIN 75 MG CAPSULE PO SCH (08:28)
--- NOTE | 2018-01-21 10:28 | Discharge Summary ---
Medical - DS: Prov Patient information: Note initiated : 01/21/18 at 10:16 am Patient: Val Blue 57 y/o F admitted on 01/18/18 for intractable pain due to pelvic fractures. She also underwent a percutaneous pinning of right 5th proximal phalanx, but that was not the reason for admission. Date of admission: 01/18/18 12:54 Discharge date: 01/21/18 Primary care physician: Adia Blake Admitting clinician: Sury Reina Attending physician on admission: Sury Reina Consults: 01/17/18 17:34 Consult to Physician [CONS] Stat Comment: Consulting Provider: Sury Reina Reason For Exam: Physician to Consult 01/18/18 12:13 Consult to Physician [CONS] Routine Comment: Proximal 5th digit fracture; stable pelvic fractur Consulting Provider: Joselito Mendoza Reason For Exam: Physician to Consult Attending physician on discharge: Sury Reina Discharging clinician: Sury Reina Medical - DS: Meds - Discharge Medications Prescriptions: Buprenorphine [Butrans] 20 mcg TD QWEEK #1 patch.tdwk Methylphenidate HCl [Ritalin] 10 mg PO BID #7 tab oxyCODONE/APAP [Percocet 5-325 mg] 1 tab PO Q4HP PRN #10 tab PRN Reason: Pain Level 3-6 Vitamin D3 3,000 unit PO DAILY #30 tab Active and Home Medications: Home Medications Albuterol Sulfate [Proair Hfa] 8.5 gm IH Q4HP PRN 01/22/17 [History Confirmed Last Taken Unknown] Montelukast Sodium [Singulair] 10 mg PO HS 01/22/17 [History Confirmed 01/17/18 Last Taken Unknown] Pantoprazole Sodium [Protonix] 40 mg PO DAILY 01/22/17 [History Confirmed Last Taken Unknown] Verapamil HCl [Verapamil ER] 120 mg PO HS 01/22/17 [History Confirmed 01/17/18 Last Taken Unknown] buPROPion HCL [Wellbutrin Xl] 300 mg PO DAILY 01/22/17 [History Confirmed Last Taken Unknown] carBAMazepine [Tegretol Xr] 400 mg PO BID 01/22/17 [History Confirmed 01/18/18 Last Taken Unknown] clonazePAM [Clonazepam] 1 mg PO TID 01/22/17 [History Confirmed 01/18/18 Last Taken Unknown] Pregabalin [Lyrica] 150 mg PO BID 01/17/18 [History Confirmed 01/18/18 Last Taken Unknown] Gabapentin [Neurontin] 300 mg PO BID 01/18/18 [History Confirmed 01/18/18 Last Taken Unknown] Acetaminophen [Tylenol] 650 mg PO Q6HP PRN tablet 01/21/18 [Rx Last Taken Unknown] Buprenorphine [Butrans] 20 mcg TD QWEEK #1 patch.tdwk 01/21/18 [Rx Last Taken Unknown] Docusate Sodium [Colace] 100 mg PO BID capsule 01/21/18 [Rx Last Taken Unknown] Lactase [Lactaid] 1 tab PO TIDCC tablet 01/21/18 [Rx Last Taken Unknown] Methylphenidate HCl [Ritalin] 10 mg PO BID #7 tab 01/21/18 [Rx Last Taken Unknown] Sennosides [Senokot] 2 tab PO HS PRN tablet 01/21/18 [Rx Last Taken Unknown] Vitamin D3 3,000 unit PO DAILY #30 tab 01/21/18 [Rx Last Taken Unknown] oxyCODONE/APAP [Percocet 5-325 mg] 1 tab PO Q4HP PRN #10 tab 01/21/18 [Rx Last Taken Unknown] Medical - DS: Hosp Hospital course: Mr. Blue is a 57 year old F with underlying medical problems including opioid dependent chronic pain and bipolar disorder who suffered a mechanical fall two days prior to admission and presented with persistent complaint of right hip pain such that she was unable to bear weight. She was evaluated in the ED and multiple stable pelvic fractures were identified. She had also previously been evaluated for a proximal phalanx fracture, and orthopedic surgery was consulted for that. She underwent percutaneous pinning the day prior to discharge. Please see admission H&P for details - in brief: HISTORY: History of present illness: Ms. Blue is a 57 year old F with underlying diagnoses including bipolar disorder, hypertension, spinal stenosis, and history of peptic ulcer disease without history of GI bleed who presents with right hip pain and inability to walk 48 hours after a fall. She notes she tripped on some dog toys on the kitchen floor, fell "straight backwards", coming to land mostly on her right posterior hip. She was unable to stand alone at that time, was able to get up with assistance from her daughter and son-in-law. She was evaluated at the ED at [facility], and noted to have a fracture in her 5th digit (??metacarpal) - and was placed in a forearm splint with 4th and 5th fingers in flexion. She states she was told she had no other fractures at that time. After 48 hours, discomfort has increased further and she is unable to bear weight or get around. The presence of the splint would make a walker somewhat challenging. In the ED here, CT of the pelvis showed no fractures requiring operative intervention, but did show multiple sacral and pelvis fractures that are stable and require medical management. ED placed consult to hospitalist for admission. ADMISSION EXAM: GENERAL: Appears older than stated age. Alert, oriented. Speech coherent, fluent, articulate. Thought content appropriate, no pressured speech or flight of ideas. Respirations unlabored. Clearly uncomfortable when she moves to a sitting position, no distress when reclining. HEENT: Atraumatic, normocephalic; EYES: pupils equal, full range of extraocular movements, no scleral icterus, no injected vessels. EARS: TM's pearly diamond and translucent, EAC's without cerumen or trauma, auricles without lesions. OROPHARYNX: Edentulous maxilla; lower incisors present with damage evident from poor hygiene. Membranes moist. NECK: Trachea midline, no adenopathy, no JVD, no bruits. LUNGS: Clear to bases bilaterally. COR: Regular rate and rhythm, no murmurs, rubs, gallops. ABDOMEN: Bowel sounds present and normal, non-distended, soft, non-tender throughout. No guarding, no rebound. No masses or organomegaly. BACK: No vertebral tenderness. No CVA tenderness. Discomfort expressed on palpation of right SI joint. EXTREMITIES: No edema, pulses x4, warm. No palpable cords, no nailbed cyanosis. MUSCULOSKELETAL: Tender at outside aspect right hip, under ischium, at right SI joint. Minimal discomfort on palpation of pubic bone. No visible bruising. No visible deformity. Passive ROM of hip with minimal discomfort. No joint swelling, erythema. Right upper extremity in a short arm splint with 4th and 5th fingers in flexion. NEURO: Sensation and mobility intact in feet. PSYCHIATRIC: Normal affect, appropriate thought content. HOSPITAL COURSE: PT and oral pain management with parenteral morphine was initiated. Her right upper extremity remained in splint, orthopedic surgery was consulted, repeat Xrays were obtained which showed less than optimal reduction of phalanx fracture. PT did have some challenges due to her inability to use RUE combined with her pain with weight bearing. She initially required regular morphine, the oral opioids were increased. At the day of discharge, she had not required additional parenteral morphine for more than 12 hours. I had told her I would be discontinuing this. Her mobility did increase, and she was compliant with her bed exercises. She did have episodes of tearfulness on occasion with some complaint of anxiety. She is chronically on a buprenorphine patch for back pain; she did not complain of any exacerbation while here. No neurologic findings on exam. She is chronically on nocturnal oxygen at 2 liters, and this was continued. She underwent percutaneous pinning of the phalanx fracture on January 20, with plan to follow up 7-10 days after discharge for casting. She remains in a splint. At time of discharge pain was adequately controlled with oral pain medications and she was participating in physical therapy. Anticipate 1-2 weeks of PT before she will be safe to discharge home and do all own ADL's. Discharge diagnosis: Pelvic fracture/sacral ala fx / pubic ramus fx Secondary discharge diagnosis: Proximal phalanx fracture Nocturnal hypoxia - chronic Chronic pain; opioid dependent Bipolar disorder HTN Doubt reported history of PUD - Time Spent with Patient Total time spent providing and/or coordinating discharge services: Greater than 30 minutes (Required greater than 30 minutes to execute this SNF discharge.) Medical - DS: Exam - Constitutional Vitals: Vital Signs Temp Pulse Pulse Pulse Pulse Resp BP 01/21/18 07:43 97.9 F 83 16 01/21/18 04:00 97.9 F 84 16 01/20/18 23:59 98.4 F 108 H 16 01/20/18 20:00 97.9 F 104 H 16 01/20/18 16:00 86 122/83 01/20/18 15:45 88 136/90 01/20/18 15:30 93 H 132/87 01/20/18 15:00 86 118/82 01/20/18 14:48 98.2 F 87 18 125/84 01/20/18 14:40 98.5 F 87 125/84 01/20/18 14:32 98.2 F 75 13 129/76 01/20/18 14:27 80 12 141/86 01/20/18 14:22 98.2 F 82 15 137/82 01/20/18 14:17 81 14 130/76 01/20/18 14:12 80 21 123/81 01/20/18 14:08 87 89 16 123/82 01/20/18 14:03 98.2 F 87 16 01/20/18 13:58 99.2 F H 76 76 16 L 10 L 01/20/18 12:00 98.6 F 67 16 BP Pulse Ox 01/21/18 07:43 108/65 98 01/21/18 04:00 100/62 98 01/20/18 23:59 129/87 96 01/20/18 20:00 123/79 94 01/20/18 16:00 94 01/20/18 15:45 96 01/20/18 15:30 94 01/20/18 15:00 94 01/20/18 14:48 95 01/20/18 14:40 98 01/20/18 14:32 100 01/20/18 14:27 100 01/20/18 14:22 98 01/20/18 14:17 98 01/20/18 14:12 100 01/20/18 14:08 91 01/20/18 14:03 131/80 94 01/20/18 13:58 124/72 96 01/20/18 12:00 116/80 96 Intake and Output 01/20/18 01/21/18 01/21/18 21:59 05:59 13:59 Intake Total 840 / 840 Output Total 1075 / 1075 1100 / 1100 100 / 100 Balance -1075 / -1075 -260 / -260 -100 / -100 Intake: Oral 840 / 840 Output: Void Amount 1075 / 1075 1100 / 1100 100 / 100 Other: Meal Dinner Percent of Meal Consumed 100% Feeding Ability Independent # Bowel Movements 1 Weight 148 lb Additional comments: GENERAL: Up eating breakfast. Tearful and anxious again this morning regarding SNF discharge. Responsive to discussion regarding that. Respirations unlabored. LUNGS: Clear to the bases bilaterally. COR: Regular rate and rhythm, no murmurs, rubs, gallops. ABDOMEN: Non-distended, soft, non-tender. BACK: No vertebral tenderness, no CVA tenderness; still uncomfortable on palpation of right SI joint area. EXT: New splint on RUE; fingers warm, cap refill <2 sec, wiggles them easily, no swelling. Medical - DS: A/P - Patient/Caregiver Discharge Instructions Activity: as per physical therapy, wear oxygen at night (Continue 2 liter chronic oxygen by nasal cannula) Diet: Regular Diet Additional Instructions: 1) Elevate Right upper extremity when you are sitting or when it feels more swollen or painful 2) Keep appointment with Dr. Mendoza for surgery follow up Prescriptions: Buprenorphine [Butrans] 20 mcg TD QWEEK #1 patch.tdwk Methylphenidate HCl [Ritalin] 10 mg PO BID #7 tab oxyCODONE/APAP [Percocet 5-325 mg] 1 tab PO Q4HP PRN #10 tab PRN Reason: Pain Level 3-6 Vitamin D3 3,000 unit PO DAILY #30 tab Other Amb Orders: Physical Therapy at Discharge - General Location: Determined By Patient - Follow up Plan Follow up with: Joselito Mendoza MD [Physician] - 01/28/18 8:20 am (Please arrive 20 minutes early for paperwork.) Adia Blake DO [Primary Care Provider] - Disposition: Xfer SNF Prognosis: Good Rehab Potential: Good I certify that the patient requires SNF services: Yes Overall status at discharge: patient is progressing back to baseline Medical - DS: Qual - VTE Deep Vein Thrombosis/Pulmonary Embolism Present on Admission: No
[2018-01-21] MEDS: LACTASE 1 TABLET PO SCH ×2 (12:54→12:56)
== END 2018-01-21 13:35 | DRG 513 ==
LOC: MEDSUR 16:02 → ED 16:02 → MEDSUR 19:20
PROVIDERS: ADMIT Family Medicine; ATTEND Family Medicine